=== PATIENT | male | born 1965 | race Caucasian/White ===

== ENCOUNTER 2022-10-17 14:36 | Emergency (ER) | payer BC ==
[2022-10-17] VITALS (7 sets, daily range): BP systolic 89–109; BP diastolic 50–64
[~2022-10-17] VITALS: Ht 177.8 cm; Wt 98.0 kg
[2022-10-17] MEDS ORDERED: AMOX/K CLAV875 M1 PO (16:50)
[2022-10-17] MEDS ORDERED: BACTRIM DS1 TAB PO (16:50)
[2022-10-17] MEDS ORDERED: TRAMADOL HYDROC50 M1 PO (16:50)
== END 2022-10-17 17:14 | disposition home or self-care (01) | DRG 605 ==
LOC: ED 14:36
PROC: 0HQLXZZ Repair Left Lower Leg Skin, External Approach (ICD-10-PCS; principal; 2022-10-17)
DX: S81.812A Laceration without foreign body, left lower leg, initial encounter (principal); S61.452A Open bite of left hand, initial encounter; W22.09XA Striking against other stationary object, initial encounter; Y93.K9 Activity, other involving animal care; W54.0XXA Bitten by dog, initial encounter